=== PATIENT | male | born 1950 | race African-American/Black ===

== ENCOUNTER 2019-03-22 20:25 | Emergency (ER) | payer SELFPAY ==
--- NOTE | 2019-03-22 20:45 | RAD REPORT ---
EXAM DESCRIPTION: CT - Ct Stroke Brain Wo Cont - 03/22/2019 8:38 pm CLINICAL HISTORY: Slurred speech, acute stroke study CLINICAL HISTORY: None. TECHNIQUE: Axial 5 millimeter thick images of the head were obtained without IV contrast. All CT scans are performed using dose optimization technique as appropriate and may include automated exposure control or mA/KV adjustment according to patient size. FINDINGS: No intracranial hemorrhage, mass, or cerebral edema. No acute cortical based infarction. N o cortical edema or sulcal effacement. Underlying atrophy and chronic ischemic changes are present. O ld infarction changes are present near the right head of the caudate. Arterial tree calcifications ar e present. Trivedi matter-white matter differentiation is preserved. No globe or orbital content abnormality. Visualized portions of the mastoid air cells, paranasal sinuses, and orbits are unremarkable. Findings telephoned to the referring clinician 8:43 p.m. IMPRESSION: No intracranial hemorrhage is present. No acute cortical based infarction seen. Atrophy and chronic ischemic changes are present. Chronic ischemic changes can mask nonhemorrhagic acute infarction. MR brain followup can be obtained if there is ongoing concern for acute ischemia.
[2019-03-22] MEDS ORDERED: ALTEPLASE 100 ML IV ONE (20:55)
[2019-03-22 20:56] LABS: Absolute Monocytes 0.5 K/uL (0.1-1.3); Absolute Neutrophil 4.5 K/uL (1.8-8.0); Basophils % 0.5 % (0-1.3); Hematocrit 44.3 % (39.6-49.0); Lymphocytes % 28.2 % (15.3-44.8); MPV 8.9 fL (7.6-11.3); Monocytes % 6.7 % (3.3-12.3); RBC Red Blood Cell Count 4.74 M/uL (4.33-5.43)
[2019-03-22 21:01] LABS: Protime INR 1.06
[2019-03-22 21:13] LABS: BUN Blood Urea Nitrogen 15 mg/dL (7-18); Bicarbonate 28 mmol/L (21-32); Glucose Level 105 mg/dL (74-106); Potassium 4.2 mmol/L (3.5-5.1); Sodium Level 141 mmol/L (136-145); Troponin (Emerg Dept Use Only) < 0.02 ng/mL (0.0-0.045)
--- NOTE | 2019-03-22 21:34 | ER ---
Nurse's Notes [facility] Name: Brian Piedra Age: 68 yrs Sex: Male : 1950 Arrival Date: 03/22/2019 Time: 20:28 Bed 4 Private MD: Diagnosis: Dysarthria following cerebral infarction;Acute ischemic stroke Presentation: 03/22 20:25 Presenting complaint: pt's son states pt was at home and he noticed he had slurred bb speech and difficulty speaking, pt has had a stroke in the past so they brought him here. Transition of care: patient was not received from another setting of care. An acute neurological deficit is present. The charge nurse has been notified. Onset of symptoms was March 22, 2019 at 19:30. Risk Assessment: Do you want to hurt yourself or someone else? Patient reports no desire to harm self or others. Initial Sepsis Screen: Does the patient meet any 2 criteria? No. Patient's initial sepsis screen is negative. Does the patient have a suspected source of infection? No. Patient's initial sepsis screen is negative. Care prior to arrival: None. 20:25 Method Of Arrival: Ambulatory bb 20:25 Acuity: NEISHA 2 bb 21:27 Pre-hospital glucose is not applicable to this patient. rv Triage Assessment: 21:06 The onset of the patients symptoms was less than three hours ago. bb 21:52 The onset of the patients symptoms was March 22, 2019 at 19:30. General: Appears in no rv apparent distress. comfortable. Stroke Activation: Symptom onset < 3 hours Physician: Stroke Attending; Name: ; Notified At: ; Arrived At: Physician: Chief Stroke Resident; Name: ; Notified At: ; Arrived At: Physician: Stroke Resident; Name: ; Notified At: ; Arrived At: Physician: ED Attending; Name: Vivi; Notified At: 20:30; Arrived At: 20:30 Physician: ED Resident; Name: ; Notified At: ; Arrived At: Historical: - Allergies: 21:06 PENICILLINS; bb - Home Meds: 21:43 None [Active]; lp1 - PMHx: 21:43 CVA; lp1 - PSHx: 21:43 Arm surgery; lp1 - Immunization history:: Adult Immunizations unknown. - Social history:: Smoking status: unknown. - Family history:: not pertinent. - Ebola Screening: : No symptoms or risks identified at this time. - Hospitalizations: : No recent hospitalization is reported. Screenin:26 Abuse screen: Denies threats or abuse. Denies injuries from another. Nutritional rv screening: No deficits noted. Tuberculosis screening: No symptoms or risk factors identified. Fall Risk No fall in past 12 months (0 pts). Secondary diagnosis (15 points) CVA, IV access (20 points). Ambulatory Aid- Crutches/Cane/Walker (15 pts). Gait- Normal/Bed Rest/Wheelchair (0 pts) Mental Status- Oriented to own ability (0 pts). Total Leiva Fall Scale indicates High Risk Score (45 or more points). Fall prevention measures have been instituted. Side Rails Up X 2 Placed Close to Nursing Station 1:1 Attendant Assigned Frequent Obs/Assessments Occuring Family Present and informed to notify staff if the need to leave the bedside As available patient and family educated on Fall Prevention Program and Strategies. Assessment: 20:45 General: Appears in no apparent distress. comfortable, Behavior is calm, cooperative. rv 20:45 VAN Scoring: Arm Drift: Patients demonstrates NO arm weakness. Patient is VAN Negative. rv The patient has not been NPO before screening. The patient is currently on the following diet: milly The patient is alert, and able to follow commands. The patient exhibits slurred or garbled speech. Provider notified of the indication for Speech Therapy consult. The patient is not exhibiting difficulty speaking. The patient does not exhibit difficulty understanding words. The patient is able to swallow own secretions with no drooling or need for suction. Patient tolerated one teaspoon of water. No drooling, immediate coughing, gurgling, or clearing of the throat was noted. The patient tolerated 90mL of water. No drooling, immediate coughing, gurgling, or clearing of the throat was noted. The patient passed the bedside swallow screening. Oral medications may be given as ordered. Contact Physician for further diet orders. Provider notified of bedside swallow screening results: Don Trinidad MD. T-PA (Activase) Screening: Indications: Definite evidence of stroke, ischemic, embolic, or hypertensive: Yes. Treatment will start within 4.5 hours onset of symptoms: Yes. No evidence of intracranial hemorrhage or CT of head and no evidence of peripheral hemorrhage or recent CVA: Yes. Consent for thrombolytic therapy: Yes. Pain: Denies pain. Neuro: Level of Consciousness is awake, alert, obeys commands, Oriented to person, place, time, situation. Neuro: Reports slurred speech. Cardiovascular: Patient's skin is warm and dry. Respiratory: Airway is patent. GI: No signs and/or symptoms were reported involving the gastrointestinal system. : No signs and/or symptoms were reported regarding the genitourinary system. EENT: No signs and/or symptoms were reported regarding the EENT system. Derm: Skin is intact. Musculoskeletal: No signs and/or symptoms reported regarding the musculoskeletal system. 21:41 Reassessment: Patient appears in no apparent distress at this time. No changes from rv previously documented assessment. Patient and/or family updated on plan of care and expected duration. Pain level reassessed. Patient is alert, oriented x 3, equal unlabored respirations, skin warm/dry/pink. 21:51 Reassessment: Report called to Fransisco Mercedes RN at [facility] for lp1 patient transfer to Neuro ICU Rm [id number]. Vital Signs: 20:28 BP 148 / 77; Pulse 80; Resp 18; ea 20:46 Weight 64.14 kg (M); ea 20:51 BP 128 / 64; Pulse 78; Resp 16; Pulse Ox 98% ; ea 21:00 BP 116 / 91; Pulse 80; Resp 16; Pulse Ox 98% ; ea 21:47 BP 148 / 87; Pulse 77; Resp 15; Pulse Ox 98% on R/A; ea 22:15 BP 140 / 88; Pulse 77; Resp 16; Temp 98.4; Pulse Ox 98% ; rv NIH Stroke Scale Scores: 20:29 NIHSS Score: 2 rn 21:29 NIHSS Score: 2 rv ED Course: 20:28 Patient arrived in ED. ds1 20:28 Don Trinidad MD is Attending Physician. rn 20:29 Arm band placed on Patient placed in an exam room, on a stretcher, on monitoring tech, bb on pulse oximetry. Family accompanied patient. 20:40 CT Stroke Brain w/o Contrast In Process Unspecified. EDMS 20:45 Inserted saline lock: 20 gauge in left antecubital area, using aseptic technique. Blood rv collected. 20:50 EKG done, by ED staff, reviewed by Don Trinidad MD. rv 20:52 Stroke CXR 1 View In Process Unspecified. EDMS 20:55 Inserted saline lock: 20 gauge in right upper arm, using aseptic technique. oe 21:00 Patient has correct armband on for positive identification. Placed in gown. Bed in low rv position. Call light in reach. Side rails up X2. Adult w/ patient. gambling monitor on. Pulse ox on. NIBP on. 21:04 Triage completed. bb 21:12 Aditya Patel, JAS is Primary Nurse. rv 21:51 No provider procedures requiring assistance completed. Patient transferred, IV remains rv in place. Administered Medications: 21:05 Drug: ACTIvase {Co-Signature: ca1 (Ann Marie Molina RN).} Route: IV Thrombolytics; Rate: rv calculated rate; Infused Over: 60 mins; 22:20 Follow up: Response: No adverse reaction rv 22:21 Follow up: Response: No adverse reaction rv 21:40 Drug: NS 0.9% 50 ml Route: IV; Rate: per protocol; Site: left antecubital; rv 22:20 Follow up: IV Status: Order to discontinue infusion rv Point of Care Testing: Blood Glucose: 20:29 Blood Glucose: 104 mg/dL; bb Ranges: Outcome: 21:33 ER care complete, transfer ordered by . rn 22:18 Transferred by ground EMS to [facility], Transfer form completed. X-rays rv sent w/ patient. 22:18 Condition: good 22:18 Discharge instructions given to patient, family, Instructed on discharge instructions, the need for transfer. 22:22 Patient left the ED. rv NIH Stroke Scale - NIH Stroke Score Date: 03/22/2019 Time: 20:29 Total Score = 2 1a. Level of Consciousness (LOC) - 0(Alert) 1b. Level of Consciousness (LOC) (Year \T\ Age) - 0(Both) 1c. LOC Commands (Open \T\ Closes Eyes/Mobile Paramedical Examiner) - 0(Both) 2. Best Gaze (Lateral Gaze Paresis) - 0(Normal) 3. Visual Field Loss - 0(No visual loss) 4. Facial Palsy - 1(Minor Paralysis) 5a. Left Arm: Motor (10-second hold) - 0(No drift) 5b. Right Arm: Motor (10-second hold) - 0(No drift) 6a. Left Leg: Motor (5-second hold - always test supine) - 0(No drift) 6b. Right Leg: Motor (5-second hold - always test supine) - 0(No drift) 7. Limb Ataxia (finger/nose \T\ heel/steiner - test with eyes open) - 0(Absent) 8. Sensory Loss (pinprick arms/legs/face) - 0(Normal) 9. Best Language: Aphasia (description/naming/reading) - 0(No aphasia) 10. Dysarthria (speech clarity - read or repeat words) - 1(Mild to Moderate) 11. Extinction and Inattention (visual/tactile/auditory/spatial/personal) - 0(No abnormality) Initials: jas NIH Stroke Scale - NIH Stroke Score Date: 03/22/2019 Time: 21:29 Total Score = 2 1a. Level of Consciousness (LOC) - 0(Alert) 1b. Level of Consciousness (LOC) (Year \T\ Age) - 0(Both) 1c. LOC Commands (Open \T\ Closes Eyes/Mobile Paramedical Examiner) - 0(Both) 2. Best Gaze (Lateral Gaze Paresis) - 0(Normal) 3. Visual Field Loss - 0(No visual loss) 4. Facial Palsy - 0(Normal) 5a. Left Arm: Motor (10-second hold) - 0(No drift) 5b. Right Arm: Motor (10-second hold) - 0(No drift) 6a. Left Leg: Motor (5-second hold - always test supine) - 0(No drift) 6b. Right Leg: Motor (5-second hold - always test supine) - 0(No drift) 7. Limb Ataxia (finger/nose \T\ heel/steiner - test with eyes open) - 0(Absent) 8. Sensory Loss (pinprick arms/legs/face) - 0(Normal) 9. Best Language: Aphasia (description/naming/reading) - 1(Mild to moderate aphasia) 10. Dysarthria (speech clarity - read or repeat words) - 1(Mild to Moderate) 11. Extinction and Inattention (visual/tactile/auditory/spatial/personal) - 0(No abnormality) Initials: rv Signatures: Dispatcher [facility] Sarah Higgins ds1 Linn Muñoz RN RN bb Nieto, Roman, MD MD rn Pena, Laura RN RN lp1 Dre Elliott Elena RN RN ea Aditya Patel RN RN rv Ann Marie Molina RN ca1 Corrections: (The following items were deleted from the chart) 21:30 20:45 NIHSS Score: 1 rv rv 21:48 21:47 BP 148 / 87; Pulse 77bpm; Resp 18bpm; Pulse Ox 98% RA; Temp 16F; ea ea
--- NOTE | 2019-03-22 21:34 | EDPHYS ---
Physician Documentation [facility] Name: Brian Piedra Age: 68 yrs Sex: Male : 1950 Arrival Date: 03/22/2019 Time: 20:28 Bed 4 Private MD: ED Physician Don Trinidad HPI: 03/22 20:34 This 68 yrs old Black Male presents to ER via Unassigned with complaints of S/S of rn Possible Stroke. 20:34 The patient's problem is reported as dysphasia. Onset: The symptoms/episode rn began/occurred 1 hour(s) ago. Duration: This was a single incident, The episode is continuous. Context: the episode(s) was witnessed, by family, occurred at home, occurred while the patient was at rest. The symptoms are alleviated by nothing. The symptoms are aggravated by nothing. Severity of symptoms: At their worst the symptoms were moderate in the emergency department the symptoms are unchanged. The patient has experienced a previous episode. REports stroke in [place] years ago, similar presentation with facial droop and slurred speech. Was awake, on porch, sudden onset of slurred speech, no weakness, no trauma, no numbness, no recent surgery or bleeding episodes. Doesn't take any medication.. Historical: - Allergies: 21:06 PENICILLINS; bb - Home Meds: 21:43 None [Active]; lp1 - PMHx: 21:43 CVA; lp1 - PSHx: 21:43 Arm surgery; lp1 - Immunization history:: Adult Immunizations unknown. - Social history:: Smoking status: unknown. - Family history:: not pertinent. - Ebola Screening: : No symptoms or risks identified at this time. - Hospitalizations: : No recent hospitalization is reported. ROS: 20:34 Constitutional: Negative for fever, chills, and weight loss, Eyes: Negative for injury, rn pain, redness, and discharge, Neck: Negative for injury, pain, and swelling, Cardiovascular: Negative for chest pain, palpitations, and edema, Respiratory: Negative for shortness of breath, cough, wheezing, and pleuritic chest pain, Abdomen/GI: Negative for abdominal pain, nausea, vomiting, diarrhea, and constipation, MS/Extremity: Negative for injury and deformity, Skin: Negative for injury, rash, and discoloration, Neuro: + slurred speech, negative for headache/numbness/tingling Exam: 20:34 Constitutional: This is a well developed, well nourished patient who is awake, alert, rn and in no acute distress. Head/Face: Normocephalic, atraumatic. Eyes: Pupils equal round and reactive to light, extra-ocular motions intact. Lids and lashes normal. Conjunctiva and sclera are non-icteric and not injected. Cornea within normal limits. Periorbital areas with no swelling, redness, or edema. ENT: Nares patent. No nasal discharge, no septal abnormalities noted. Tympanic membranes are normal and external auditory canals are clear. Oropharynx with no redness, swelling, or masses, exudates, or evidence of obstruction, uvula midline. Mucous membranes moist. Neck: Trachea midline, no thyromegaly or masses palpated, and no cervical lymphadenopathy. Supple, full range of motion without nuchal rigidity, or vertebral point tenderness. No Meningismus. Cardiovascular: Regular rate and rhythm. No pulse deficits. Respiratory: Lungs have equal breath sounds bilaterally, clear to auscultation, No increased work of breathing, no retractions or nasal flaring. Abdomen/GI: soft, non-tender MS/ Extremity: Pulses equal, no cyanosis. Neurovascular intact. Full, normal range of motion. Equal circumference. Neuro: Awake and alert, GCS 15, oriented to person, place, time, and situation. + mild right sided facial droop upper and lower face. + moderate slurred speech. Motor strength 5/5 in all extremities. Sensory grossly intact. Cerebellar exam normal. Walks with cane, no new deficits in gait. 20:46 ECG was reviewed by the Attending Physician. rn Vital Signs: 20:28 BP 148 / 77; Pulse 80; Resp 18; ea 20:46 Weight 64.14 kg (M); ea 20:51 BP 128 / 64; Pulse 78; Resp 16; Pulse Ox 98% ; ea 21:00 BP 116 / 91; Pulse 80; Resp 16; Pulse Ox 98% ; ea 21:47 BP 148 / 87; Pulse 77; Resp 15; Pulse Ox 98% on R/A; ea 22:15 BP 140 / 88; Pulse 77; Resp 16; Temp 98.4; Pulse Ox 98% ; rv NIH Stroke Scale Scores: 20:29 NIHSS Score: 2 rn 21:29 NIHSS Score: 2 rv MDM: 20:28 Patient medically screened. rn 20:34 ED course: Pt with NIH 1 for speech, son here and states that facial droop present from rn previous stroke. Is TPA candidate, in CT, if no bleed will consent for TPA. . 20:42 ED course: Dr. Shirley reports no acute findings on CT head. rn 21:20 ED course: Initiated transfer to [facility], on saturation and unable to take patient, rn will transfer to [facility].. 21:24 ED course: labs unremarkable, TPA going, no complications, awaiting transfer. . rn 21:31 Differential diagnosis: CVA. Data reviewed: vital signs, nurses notes, lab test rn result(s), EKG, radiologic studies, CT scan, and as a result, I will admit patient. Counseling: I had a detailed discussion with the patient and/or guardian regarding: the historical points, exam findings, and any diagnostic results supporting the discharge/admit diagnosis, lab results, radiology results, the need for further work-up and treatment in the hospital, the need to transfer to another facility. Response to treatment: There is no appreciated change of the patient's symptoms at this time. 03/22 20:29 Order name: Troponin (emerg Dept Use Only); Complete Time: 21:15 03/22 20:29 Order name: Basic Metabolic Panel; Complete Time: 21:15 03/22 20:29 Order name: CBC with Diff; Complete Time: 21: 03/22 20:29 Order name: Protime (+inr); Complete Time: 21:15 03/22 20:29 Order name: Ptt, Activated; Complete Time: 21:15 03/22 20:31 Order name: glucometer results - FOR PT WITH NO ID; Complete Time: 20:42 lp1 03/22 20:29 Order name: CT Stroke Brain w/o Contrast; Complete Time: 21: 03/22 20:29 Order name: Stroke CXR 1 View rn 03/22 20:29 Order name: EKG; Complete Time: 20:30 03/22 20:29 Order name: Accucheck; Complete Time: 20:33 03/22 20:29 Order name: Cardiac monitoring; Complete Time: 21:13 03/22 20:29 Order name: EKG - Nurse/Tech; Complete Time: 21: rn 03/22 20:29 Order name: IV Saline Lock; Complete Time: 21: rn 03/22 20:29 Order name: Labs collected and sent; Complete Time: : rn 03/22 20:29 Order name: NPO; Complete Time: 20:33 rn 03/22 20:29 Order name: O2 Per Protocol; Complete Time: 20: rn 03/22 20:29 Order name: O2 Sat Monitoring; Complete Time: 20: rn 03/22 20:29 Order name: Stroke Swallow Screen; Complete Time: 21: rn EC:46 Rate is 77 beats/min. Rhythm is regular. QRS [place] is Normal. NM interval is normal. QRS rn interval is normal. QT interval is normal. No Q waves. T waves are Normal. No ST changes noted. Clinical impression: Normal ECG. Interpreted by me. Reviewed by me. Administered Medications: 21:05 Drug: ACTIvase {Co-Signature: ca1 (Ann Marie Molina RN).} Route: IV Thrombolytics; Rate: rv calculated rate; Infused Over: 60 mins; 22:20 Follow up: Response: No adverse reaction rv 22:21 Follow up: Response: No adverse reaction rv 21:40 Drug: NS 0.9% 50 ml Route: IV; Rate: per protocol; Site: left antecubital; rv 22:20 Follow up: IV Status: Order to discontinue infusion rv Point of Care Testing: Blood Glucose: 20:29 Blood Glucose: 104 mg/dL; bb Ranges: Critical Glucose Levels:Adult <50 mg/dl or >400 mg/dl <40 mg/dl or >180 mg/dl Disposition: 03/22/19 21:33 Transfer ordered to [facility]. Diagnosis are Dysarthria following cerebral infarction, Acute ischemic stroke. - Reason for transfer: Higher level of care. - Accepting physician is Dr. Muse. - Condition is Stable. - Problem is new. - Symptoms are unchanged. Critical care time excluding procedures: 21:31 Critical care time: Bedside Care: 25 minutes, Consultation: 3 minutes, Family rn Intervention: 5 minutes. Total time: 33 minutes NIH Stroke Scale - NIH Stroke Score Date: 03/22/2019 Time: 20: Total Score = 2 1a. Level of Consciousness (LOC) - 0(Alert) 1b. Level of Consciousness (LOC) (Year \T\ Age) - 0(Both) 1c. LOC Commands (Open \T\ Closes Eyes/Software Quality Assurance Engineer) - 0(Both) 2. Best Gaze (Lateral Gaze Paresis) - 0(Normal) 3. Visual Field Loss - 0(No visual loss) 4. Facial Palsy - 1(Minor Paralysis) 5a. Left Arm: Motor (10-second hold) - 0(No drift) 5b. Right Arm: Motor (10-second hold) - 0(No drift) 6a. Left Leg: Motor (5-second hold - always test supine) - 0(No drift) 6b. Right Leg: Motor (5-second hold - always test supine) - 0(No drift) 7. Limb Ataxia (finger/nose \T\ heel/steiner - test with eyes open) - 0(Absent) 8. Sensory Loss (pinprick arms/legs/face) - 0(Normal) 9. Best Language: Aphasia (description/naming/reading) - 0(No aphasia) 10. Dysarthria (speech clarity - read or repeat words) - 1(Mild to Moderate) 11. Extinction and Inattention (visual/tactile/auditory/spatial/personal) - 0(No abnormality) Initials: simon NIH Stroke Scale - NIH Stroke Score Date: 03/22/2019 Time: 21:29 Total Score = 2 1a. Level of Consciousness (LOC) - 0(Alert) 1b. Level of Consciousness (LOC) (Year \T\ Age) - 0(Both) 1c. LOC Commands (Open \T\ Closes Eyes/Software Quality Assurance Engineer) - 0(Both) 2. Best Gaze (Lateral Gaze Paresis) - 0(Normal) 3. Visual Field Loss - 0(No visual loss) 4. Facial Palsy - 0(Normal) 5a. Left Arm: Motor (10-second hold) - 0(No drift) 5b. Right Arm: Motor (10-second hold) - 0(No drift) 6a. Left Leg: Motor (5-second hold - always test supine) - 0(No drift) 6b. Right Leg: Motor (5-second hold - always test supine) - 0(No drift) 7. Limb Ataxia (finger/nose \T\ heel/steiner - test with eyes open) - 0(Absent) 8. Sensory Loss (pinprick arms/legs/face) - 0(Normal) 9. Best Language: Aphasia (description/naming/reading) - 1(Mild to moderate aphasia) 10. Dysarthria (speech clarity - read or repeat words) - 1(Mild to Moderate) 11. Extinction and Inattention (visual/tactile/auditory/spatial/personal) - 0(No abnormality) Initials: rv Signatures: Dispatcher [employer] Linn Mendoza RN RN bb Don Trinidad MD MD rn Pena, Laura, RN RN lp1 Aditya Patel RN RN rv Ann Marie Molina RN ca1 Corrections: (The following items were deleted from the chart) 21:33 21:33 03/22/2019 21:[address] [facility]. Diagnosis is Dysarthria following cerebral infarction; Acute ischemic stroke. Reason for transfer: Higher level of care. Accepting physician is . Condition is Stable. Problem is new. Symptoms are unchanged. rn 22:22 21:33 03/22/2019 21:33 Transfer ordered to [facility]. Diagnosis is Dysarthria following cerebral infarction; Acute ischemic stroke. Reason for transfer: Higher level of care. Accepting physician is Dr. Muse. Condition is Stable. Problem is new. Symptoms are unchanged. rn
[2019-03-22] MEDS ORDERED: NA CHLORIDE 0.9% 50 ML IV ONE (21:49)
--- NOTE | 2019-03-23 06:17 | EKG ---
Test Date: 2019-03-22 Test Time: 20:44:45 1[address] Grade Teacher: SABINO MEASUREMENT RESULTS: Intervals: Rate: 77 NM: 168 QRSD: 86 QT: 380 QTc: 430 [place]: P: 60 NM: 168 QRS: 34 T: 51 INTERPRETIVE STATEMENTS: Normal sinus rhythm Normal ECG No previous ECG available for comparison Electronically Signed On 03-23-19 06:16:46 CDT by Chance Gonzalse
--- NOTE | 2019-03-23 08:00 | RAD REPORT ---
EXAM DESCRIPTION: Lucio Single View03/22/2019 8:51 pm CLINICAL HISTORY: Code stroke/slurred speech COMPARISON: none FINDINGS: The lungs appear clear of acute infiltrate. The heart is normal size IMPRESSION: No acute abnormalities displayed
== END 2019-03-22 22:22 | disposition short-term general hospital (02) ==
LOC: ER 20:25
DX: I63.9 Cerebral infarction, unspecified (principal); I69.322 Dysarthria following cerebral infarction; R29.702 NIHSS score 2; Z88.0 Allergy status to penicillin; Z86.73 Personal history of transient ischemic attack (TIA), and cerebral infarction without residual deficits
CPT/HCPCS: 36415; 70450; 71045; 80048; 82962; 84484; 85025; 85610; 85730; 92977; 93005; 96360; 99285; J2997